=== PATIENT | male | born 1985 | race African-American/Black ===

== ENCOUNTER 2016-09-14 04:33 | Day surgery (SDC) | payer OTHER ==
[~2016-09-14] VITALS: Ht 172.7 cm; Wt 74.8 kg
[2016-09-14] VITALS (7 sets, daily range): BP systolic 112–138; BP diastolic 61–87
[2016-09-14] MEDS ORDERED: NS 1,000 ML IV ONE ×2 (05:45→07:15)
[2016-09-14 06:01] LABS: BASO % 0.2 % (0.0-1.0); EOS # 0.2 K/mm3 (0.0-0.50); LARGE UNSTAINED CELL # 0.1 K/mm3 (0.0-0.4); LARGE UNSTAINED CELL % 0.9 % (0.0-4.0); LYMPH # 1.5 K/mm3 (1.5-4.5); LYMPH % 15.6 % (24.0-44.0); MEAN CORPUSCULAR HEMOGLOBIN 32.4 pg (27.0-33.0); MEAN CORPUSCULAR HGB CONC 34.3 g/dl (32.0-36.5); MEAN CORPUSCULAR VOLUME 94.5 fl (80.0-96.0); MONO # 0.4 K/mm3 (0.0-0.8); MONO % 4.4 % (0.0-5.0); NEUTROPHILS # 7.3 K/mm3 (1.8-7.7); NEUTROPHILS % 76.9 % (36.0-66.0); PLATELET COUNT, AUTOMATED 176 k/mm3 (150-450); RED CELL DISTRIBUTION WIDTH 13.3 % (11.5-14.5); WHITE BLOOD COUNT 9.4 K/mm3 (4.0-10.0)
[2016-09-14 06:27] LABS: ALBUMIN/GLOBULIN RATIO 0.98 (1.00-1.93); ALKALINE PHOSPHATASE 83 U/L (45-117); ALT/SGPT 29 U/L (12-78); ANION GAP 6 MEQ/L (8-16); AST/SGOT 21 U/L (15-37); BILIRUBIN,DIRECT 0.1 MG/DL (0.0-0.2); BILIRUBIN,TOTAL 0.5 MG/DL (0.2-1.0); BLOOD UREA NITROGEN 11 MG/DL (7-18); CALCIUM LEVEL 9.7 MG/DL (8.5-10.1); CARBON DIOXIDE LEVEL 28 MEQ/L (21-32); CHLORIDE LEVEL 102 MEQ/L (98-107); CREATININE FOR GFR 1.22 MG/DL (0.70-1.30); GLOMERULAR FILTRATION RATE > 60.0 (>60); GLUCOSE, FASTING 108 MG/DL (70-105); POTASSIUM SERUM 3.9 MEQ/L (3.5-5.1); SODIUM LEVEL 136 MEQ/L (136-145); TOTAL PROTEIN 8.1 GM/DL (6.4-8.2)
[2016-09-14] MEDS ORDERED: ISOVUE-370 76% 100ML VIAL (Q9967) As Ordered ONE (06:43)
[2016-09-14] MEDS ORDERED: PIPERACILLIN/TAZOBACTAM SOD 3.375 GM in D5W MINI-BAG PLUS 50 ML IV ONE (07:15)
--- NOTE | 2016-09-14 07:21 | REP ---
Clinical: Right lower quadrant pain. Technique: Axial contrast enhanced images from the lung bases to the pubic symphysis using 100 ml Isovue 370 intravenous contrast material with coronal and sagittal re-formations. Comparison: None. Findings: Acute appendicitis is appreciated including a dilated fluid filled appendix measuring 12.7 mm diameter with associated obstructing appendicolith and periappendiceal stranding (images 80 - 100). No free air. No bowel obstruction. The remainder of the small large bowel is unremarkable. Small amount of associated free fluid is extends into the pelvis without drainable collection or abscess. The liver, spleen, pancreas, gallbladder, bilateral adrenal glands and kidneys are normal. Pelvis demonstrates normal bladder and age appropriate prostate/seminal vesicles. Vasculature is normal. Surrounding musculoskeletal structures are intact. Lung bases are clear. Impression: Acute appendicitis as described above with obstructing appendicolith and surrounding inflammatory stranding. No bowel obstruction, obvious perforation, or drainable collection/abscess. Signed by Ren Hunter MD 09/14/2016 07:13 A
--- NOTE | 2016-09-14 10:30 | HPE ---
DATE OF ADMISSION: 09/14/2016 CHIEF COMPLAINT: Right lower quadrant pain. HISTORY OF PRESENT ILLNESS: The patient is a 31-year-old male, who presents with epigastric, diffuse abdominal pain, starting yesterday morning, 09/13/2016. He thought it was some indigestion. He went on with the rest of his day. By 10 a.m., the pain had localized more towards the right lower quadrant, was spreading across his abdomen. He still was attributing it to gas pains. It continued for the rest of the day. He woke up in the middle of the night with severe pain in the right lower quadrant. He came in to the emergency room for evaluation. In the emergency room (ER), he had a CT scan done, which did show acute appendicitis. Therefore, I was called to evaluate. He denies any trauma to the area. No recent illnesses. No vomiting, but he has had nausea. No eating since yesterday morning. No previous abdominal surgeries. PAST MEDICAL HISTORY: Negative. PREVIOUS SURGERIES: Cyst removal from his chest. ALLERGIES: None. HOME MEDICATIONS: None. SOCIAL HISTORY: Denies drug, alcohol, tobacco abuse. FAMILY HISTORY: Noncontributory. REVIEW OF SYSTEMS: Pertinent positives and negatives in the history of present illness (HPI). PHYSICAL EXAMINATION General: Alert and oriented times three. No acute distress. Vital signs: Temperature 99, pulse 54, respirations 18, blood pressure 135/70. HEENT: Pupils equally round and react to light and accommodation. Heart: S1, S2. Regular rate and rhythm. Lungs: Clear to auscultation bilaterally. Abdomen: Soft, tender to palpation in the right lower quadrant, guarding in the right lower quadrant. No generalized peritonitis. Extremities: No clubbing, cyanosis, or edema. LABORATORY DATA: White count 9.4, hemoglobin 17.2, platelets 176. Potassium 3.9, creatinine 1.22. IMAGING STUDIES: CT abdomen and pelvis shows acute appendicitis with dilated fluid-filled appendix measuring 12.7 mm in diameter with an obstructing appendicolith and periappendiceal fat stranding. No signs of any free air. Bowel obstruction. There is a small amount of free fluid extending to the pelvis without any drainable fluid collections or abscess formation. ASSESSMENT AND PLAN: The patient is a 31-year-old male with signs of acute appendicitis. Recommendation to proceed with laparoscopic, possible open, appendectomy. Risks and benefits of the procedure not limited but including bleeding, infection, hernia formation, damage to surrounding structure, need further surgery discussed in detail with the patient. Informed consent was obtained, and procedure was planned for this afternoon. Postoperatively, he will likely be kept overnight with plan to discharge home the first thing in the morning.
[2016-09-14] MEDS ORDERED: LR 1,000 ML IV SCH ×2 (11:30→16:45)
[2016-09-14] MEDS ORDERED: BUPIVACAINE/EPIN 0.25% 30 ML VIAL As Ordered ONE (13:28)
[2016-09-14] MEDS ORDERED: PROPOFOL 200 MG/20 ML VIAL As Ordered ONE (13:55)
[2016-09-14] MEDS ORDERED: LIDOCAINE 2% INJ 100 MG/5 ML SDV (FOR ANES.) As Ordered ONE (13:55)
[2016-09-14] MEDS ORDERED: ROCURONIUM BROMIDE 50 MG/5 ML VIAL As Ordered ONE (13:55)
[2016-09-14] MEDS ORDERED: fentaNYL 250 MCG/5 ML INJECTION (J3010) As Ordered ONE (13:55)
[2016-09-14] MEDS ORDERED: MIDAZOLAM INJ 2 MG/2 ML VIAL (J2250) As Ordered ONE (13:55)
[2016-09-14] MEDS ORDERED: dexameTHASONE 4 MG/ML 1ML VIAL (J1100) As Ordered ONE (14:06)
[2016-09-14] MEDS ORDERED: ONDANSETRON 4MG/2ML VIAL (J2405) As Ordered ONE ×2 (14:13→16:22)
[2016-09-14] MEDS ORDERED: NEOSTIGMINE 1MG/ML 5 ML SYRINGE (J2710) As Ordered ONE (14:14)
[2016-09-14] MEDS ORDERED: GLYCOPYRROLATE INJ 0.2 MG/ML 2 ML VIAL As Ordered ONE ×2 (14:14→14:31)
[2016-09-14] MEDS ORDERED: KETOROLAC 60 MG/2 ML VIAL (J1885) As Ordered ONE (14:14)
[2016-09-14] MEDS ORDERED: DESFLURANE 240 ML INHALANT As Ordered ONE (14:30)
[2016-09-14] MEDS: LR 1,000 ML IV SCH (16:11)
[2016-09-14] MEDS ORDERED: MORPHINE 2 MG/ML 1ML SYRINGE IV PRN ×2 (16:15→16:45)
[2016-09-14] MEDS ORDERED: KETOROLAC 30 MG/ML VIAL (J1885) IV PRN (16:15)
[2016-09-14] MEDS ORDERED: NORCO, ANEXSIA 5/325MG TABLET (HYDROcodone/ACETAMINOPHEN) PO PRN (16:15)
[2016-09-14] MEDS ORDERED: ACETAMINOPHEN TAB 650MG DOSE (2X325MG) PO PRN (16:15)
[2016-09-14] MEDS ORDERED: PERCOCET 5MG/325MG TAB PO PRN (16:45)
[2016-09-14] MEDS ORDERED: METOCLOPRAMIDE INJ 10MG/2ML VIAL (J2765) IV PRN (16:45)
[2016-09-14] MEDS ORDERED: fentaNYL 100 MCG/2 ML INJECTION (J3010) IV PRN (16:45)
[2016-09-14] MEDS ORDERED: ONDANSETRON 4MG/2ML VIAL (J2405) IV PRN ×3 (16:45→17:15)
[2016-09-14] MEDS: PIPERACILLIN/TAZOBACTAM SOD 3.375 GM in D5W MINI-BAG PLUS 50 ML IV SCH (18:06)
[2016-09-14] MEDS: SENOKOT S TAB PO SCH (21:05)
--- NOTE | 2016-09-14 21:20 | RO ---
DATE OF PROCEDURE: 09/14/2016 PREOPERATIVE DIAGNOSIS: Appendicitis. POSTOPERATIVE DIAGNOSIS: Appendicitis. OPERATIVE PROCEDURE: Laparoscopic appendectomy. SURGEON: Alpesh Treadwell MD PROPOSAL LEAD WRITER: None. ANESTHESIA: General. COMPLICATIONS: None. INDICATIONS FOR PROCEDURE: The patient is a 31-year-old male who presents with right lower quadrant abdominal pain and found have acute appendicitis. Recommendation is to proceed with laparoscopic and possible open appendectomy. Risks and benefits of the procedure not limited to but including bleeding, infection, hernia formation, damage to surrounding structures, need for further surgery were discussed in detail with the patient and informed consent was obtained and the procedure was planned. DESCRIPTION OF THE PROCEDURE: The patient was brought back to operating room three; after sufficient sedation the abdomen was sterilely prepped and draped. Next, a time-out was done to confirm proper patient and proper procedure. Following that, a Veress needle was inserted in the left upper quadrant at Palumbo's point through a stab incision. The abdomen was insufflated to 50 mmHg. Next, a 5 mm infraumbilical incision was made, a 5 mm OptiVu port was used to gain access to the abdomen. Once the abdomen was entered, the Veress needle site was examined. There were no signs of injury. Veress needle was then removed and replaced with a 3 mm port. Another 3 mm port was placed in the left lower quadrant. The appendix was visualized adhered to the right abdominal wall. This was carefully dissected free using blunt dissection. The mesoappendix was then taken down using Enseal all way to the base the appendix. The base of the appendix was encircled twice with PDS Endoloops to amputate it. It was then ligated just distal to these using the Enseal. The appendix was then brought out through a 5 mm EndoCatch bag through the umbilical port site. The right lower quadrant was then examined one last time to confirm hemostasis. The abdomen was then desufflated. The skin incision at the umbilicus was closed with #4-0 Vicryl subcuticular suture. The abdomen was then cleaned and dried. Steri-Strips, 4 x 4 and tape were applied thus ending the procedure.
[2016-09-15] VITALS: BP 111/53
[2016-09-15] MEDS: PIPERACILLIN/TAZOBACTAM SOD 3.375 GM in D5W MINI-BAG PLUS 50 ML IV SCH ×2 (00:39→05:27)
[2016-09-15 04:00] VITALS: BP 121/58
[2016-09-15] MEDS: LR 1,000 ML IV SCH (05:26)
[2016-09-15 08:00] VITALS: BP 129/71
[2016-09-15] MEDS: SENOKOT S TAB PO SCH (09:11)
[2016-09-15 12:00] VITALS: BP 130/78
[2016-09-15 16:00] VITALS: BP 120/77
--- NOTE | 2016-09-15 22:47 | DSES ---
DATE OF ADMISSION: 09/14/2016 DATE OF DISCHARGE: ADMISSION DIAGNOSIS: Acute appendicitis. DISCHARGE DIAGNOSIS: Acute appendicitis. HOSPITAL COURSE: The patient is a 31-year-old male who presented with acute appendicitis to emergency room. He was taken to the operating room for laparoscopic appendectomy. Postoperatively he did well. Pain was controlled. No fevers. No nausea or vomiting. He is passing gas and walking around the halls, tolerating a regular diet. The abdomen soft, tender to palpation, appropriate. The dressings are clean, dry, and intact. PROCEDURES: Laparoscopic appendectomy on 09/14/2016. PLAN: Discharge home today. Followup with me in the office in 2 weeks. He is not requesting any pain medications for discharge. He will just use Tylenol and Motrin as needed. Okay to shower in 24 hours. Leave the Steri-Strips in place. No lifting, pushing, or pulling more than 20 pounds for 2 weeks, and he will followup with me in the office.
== END 2016-09-15 16:15 | disposition home or self-care (01) ==
LOC: M ED 05:25 → M SDC 08:15 → M PED 09:53 → M SDC 09-15 16:15
PROVIDERS: ATTEND Surgery
DX: K35.89 Other acute appendicitis (principal)
CPT/HCPCS: 36415; 44970; 74177; 80048; 80076; 83690; 85025; 87040; 88304; 96361; 96365; 96376; 99285; J1100; J1885; J2250; J2405; J2543; J2710; J3010; Q9967